=== PATIENT | male | born 1985 | race Caucasian/White ===

== ENCOUNTER 2019-06-30 16:48 | Inpatient (IN) | payer OTHER, MEDICAID ==
[~2019-06-30] VITALS: Ht 167.6 cm; Wt 67.1 kg
--- NOTE | 2019-06-30 16:48 | NUR ---
MD LICONA ASSESSING PT WHILE ON [facility].
[2019-06-30 16:56] VITALS: BP_SYST 126
--- NOTE | 2019-06-30 17:08 | NUR ---
Patient to ER bed 06 to gown for evaluation. Side rails up.
--- NOTE | 2019-06-30 17:12 | NUR ---
PT NOW IN BED 6. CONTINUES TO SLEEP. PT WILL OPEN EYES UPON USING STERNAL RUB . 20G IN LEFT FA. PT IS MOVING AT TIMES, BUT IS MOSTLY SLEEPING. VS ARE ALL WNL.
--- NOTE | 2019-06-30 17:15 | NUR ---
Called Poison Control at [phone] and spoke with Priscilla. Per recommendations: Look for tachycardia, seizure, hyperthermia, hallucinations, prolonged QT, and BEADER/respiratory depression, and liver effects. Recommends UDS, ETOH, Chem, Liver enzymes, tylenol. Repeat the tylenol, aspirin, chem with liver enzymes in 4 hours. No flumazanil to be given, narcan is okay to give as needed. Reviewed EKG, if QT >500 give IV magnesium. If QRS >120, given Bicarb. Given resource to Dr. Schwartz regarding substance abuse line, . Dr. Schwartz notified. Will continue to monitor patient.
--- NOTE | 2019-06-30 17:24 | NUR ---
IV FLUIDS INFUSING NS WIDE OPEN
[2019-06-30 17:36] LABS: BASOPHILS % (AUTO) 0.4 % (0.0-2.0); HEMATOCRIT 45.3 % (36-54); HEMOGLOBIN 15.4 g/dL (14.0-18.0); LYMPHOCYTES # (AUTO) 1.8 K/uL (1.0-5.5); LYMPHOCYTES % (AUTO) 30.7 % (20.5-51.5); MEAN CORPUSCULAR HEMOGLOBIN 35 pg (27-31); MEAN CORPUSCULAR HGB CONC 34 % (32-36); MEAN CORPUSCULAR VOLUME 102 fL (79.0-98.0); MONOCYTES # (AUTO) 0.8 K/uL (0.0-1.0); MONOCYTES % (AUTO) 14.2 % (1.7-9.3); NEUTROPHILS # (AUTO) 3.3 K/uL (1.8-7.7); NEUTROPHILS % (AUTO) 54.7 % (40.0-70.0); PLATELET COUNT (AUTO) 217 K/uL (130-430); RED BLOOD CELL COUNT(AUTO) 4.47 MIL/uL (4.2-6.2); RED CELL DISTRIBUTION WIDTH 13.4 % (9.0-15.0)
[2019-06-30 17:51] LABS: INR 1.1 (0.80-1.20); PROTHROMBIN TIME 11.4 SECS (9.5-12.5)
[2019-06-30 18:04] LABS: ALANINE AMINOTRANSFERASE 62 U/L (12-78); ALBUMIN 3.8 g/dL (3.4-4.8); ALCOHOL, BLOOD 89 mg/dL (<10); ANION GAP 5 (5-15); ASPARTATE AMINOTRANSFERASE 48 U/L (10-37); CALCIUM 8.6 mg/dL (8.4-11.0); CHLORIDE 96 mmol/L (98-107); CREATININE 1.05 mg/dL (0.55-1.30); GLUCOSE 92 mg/dL (70-99); POTASSIUM 3.3 mmol/L (3.5-5.1); SODIUM SERUM 131 mmol/L (136-145); TOTAL BILIRUBIN 0.4 mg/dL (0.0-1.0); UREA NITROGEN, BLOOD 22 mg/dL (8-21)
[2019-06-30 18:05] LABS: ACETAMINOPHEN < 1 ug/mL (1-30); GFR AFRICAN AMERICAN 105 mL/min (>90)
--- NOTE | 2019-06-30 18:15 | NUR ---
PT TAKEN TO CT HEAD.
[2019-06-30 18:33] LABS: CKMB RELATIVE INDEX 0.8 (0.0-2.9); CREATINE KINASE MB 5.2 ng/mL (0-3.6)
--- NOTE | 2019-06-30 18:34 | NUR ---
PT BACK FROM CT.
--- NOTE | 2019-06-30 19:00 | NUR ---
Pt wanded by Security. Dangerous items and contraband, medications removed from room.
--- NOTE | 2019-06-30 19:12 | NUR ---
Spoke with patients brother Walt, . Per Walt, patient was diagnosed with depression prior to service. 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 Patient has no known PTSD from service. Patient lives with his sister and brother in law. Patient has had prior suicide attempts, 3-4 known. Per brother, patients prior attempts have all been taking unknown pills. Patients sister is getting frustrated with patient, and brother Watl has decided to step in and assist. Per brother patient texted his boss stating "I am sorry I wasn't a better employee, I am going to go to sleep and not wake up." Patient is an avid gym goer and "health freak" per brother. Concerned regarding patient status and would like to have the patient observed.
[2019-06-30 19:55] LABS: BARBITURATE, URINE NEGATIVE (NEG <=200); BENZODIAZEPINE, URINE NEGATIVE (NEG <=150); CANNABINOID, URINE NEGATIVE (NEG <=50); COCAINE, URINE NEGATIVE (NEG <=150); METHAMPHETAMINES SCREEN,URINE NEGATIVE (NEG <=500); OPIATE, URINE NEGATIVE (NEG <=100); PHENCYCLIDINE SCREEN,URINE NEGATIVE (NEG <=25); UR TRICYCLIC ANTIDEPRESSANTS NEGATIVE (NEG <=300); URINE AMPHETAMINE NEGATIVE (NEG <=500); URINE METHADONE NEGATIVE (NEG <=200); URINE OXYCODONE SCREEN NEGATIVE (NEG <=100); URINE PROPOXYPHENE SCREEN NEGATIVE (NEG <=300)
[2019-06-30] MEDS ORDERED: NACL 0.9% 1,000 ML IV ONE (21:15)
--- NOTE | 2019-06-30 21:28 | NUR ---
Spoke with Cristopher from [facility] in regards to transferring patient. Cristopher states will call back in order to find out if patient needs to be on a hold. If patient is on hold, per Cristopher, they are unable to take patient for transfer.
[2019-06-30 22:22] LABS: CKMB RELATIVE INDEX 0.9 (0.0-2.9); CREATINE KINASE MB 5.1 ng/mL (0-3.6)
--- NOTE | 2019-06-30 22:53 | NUR ---
Grant from poison control called and wants to repeat the CMP.
--- NOTE | 2019-06-30 23:30 | NUR ---
Patient will be admitted to care of Dr. Fragoso. Admitted to ICU unit. Will be ICU hold as no ICU beds avail at this time. Belongings list completed. Complete and up to date summary report printed. SBAR report to be given at bedside with opportunity for questions.
[2019-06-30 23:38] LABS: CALCIUM 7.9 mg/dL (8.4-11.0); CREATININE 0.85 mg/dL (0.55-1.30); POTASSIUM 3.7 mmol/L (3.5-5.1)
[2019-06-30 23:44] LABS: ALBUMIN 3.4 g/dL (3.4-4.8); TOTAL BILIRUBIN 0.4 mg/dL (0.0-1.0)
--- NOTE | 2019-07-01 00:11 | NUR ---
Pt provided with emesis basin, pt vomited x1
--- NOTE | 2019-07-01 01:16 | NUR ---
Pt resting in ED bed comfortably. No acute distress at this time.
--- NOTE | 2019-07-01 01:25 | NUR ---
Pt disrobed self in bed. Pt urinated onto floor next to bed
--- NOTE | 2019-07-01 02:27 | NUR ---
Pt resting in ED bed. Pt states he took hi ambien, some alchohol and some benadryl today in order to hurt self. pt unspecific on quantities.
--- NOTE | 2019-07-01 03:00 | NUR ---
Pt resting in Ed bed, VSS. No acute distress at this time
--- NOTE | 2019-07-01 04:05 | NUR ---
Pt resting in ed bed comfortably. Pt states he is unable to use urinal at this time, does not feel urge to pee
--- NOTE | 2019-07-01 06:13 | NUR ---
Spoke with Dr. rFagoso. Dr. Lira requested/approved downgrade of patient admission criteria based on current status. Pt is now downgraded to telemetry.
--- NOTE | 2019-07-01 06:19 | NUR ---
Called [facility] for Telemetry bed
--- NOTE | 2019-07-01 07:45 | NUR ---
[facility] to [facility] via [facility]. Licensed nurse present. IV present no signs or symptoms of infiltration.
[2019-07-01 08:00] VITALS: BP_SYST 131
--- NOTE | 2019-07-01 08:10 | NUR ---
CONSULTATION PAGED REASON FOR CONSULTATION:ALOC, RHABDOMYOLITIS WAS CONSULT CALLED?Y PERSON WHO WAS NOTIFIED:GISSEL CONSULTING PHYSICIAN:NAYLA HERNANDEZ PARACHUTE INSPECTOR SPECIALTY:PULMONARY PARACHUTE INSPECTOR PHONE NUMBER:[phone] REQUESTING PHYSICIAN:AAYUSH JAMES
--- NOTE | 2019-07-01 08:38 | NUR ---
CONSULTATION PAGED REASON FOR CONSULTATION:SUICIDAL ATTEMPT/DEPRESSION WAS CONSULT CALLED?Y PERSON WHO WAS NOTIFIED:GISSEL CONSULTING PHYSICIAN:CHINTAN ORO INDEPENDENT SALES REPRESENTATIVE SPECIALTY:PSYCH INDEPENDENT SALES REPRESENTATIVE PHONE NUMBER:[phone] REQUESTING PHYSICIAN:AAYUSH JAMES
[2019-07-01] MEDS ORDERED: ACET-73 PO (08:51)
[2019-07-01] MEDS ORDERED: BUPR-84 PO (08:51)
[2019-07-01] MEDS ORDERED: METH20TA PO (08:51)
[2019-07-01] MEDS ORDERED: HYDR-4272 PO (08:51)
[2019-07-01] MEDS ORDERED: MIRT15TA7 PO (08:51)
[2019-07-01] MEDS ORDERED: RANI-362 PO (08:51)
[2019-07-01] MEDS ORDERED: HYOS0.1275 PO (08:51)
[2019-07-01] MEDS ORDERED: SERT50TA PO (08:51)
[2019-07-01] MEDS ORDERED: [UNRECOGNIZED DRUG - CODE] PO (08:51)
[2019-07-01] MEDS ORDERED: ZOLP10TA2 PO (08:51)
--- NOTE | 2019-07-01 09:00 | NUR ---
PATIENT IS ASSESSED. PATIENT STATES THAT HE HAS NO INTENTIONS OF INFLICTING INJURIES ON HIMSELF AT THIS TIME.
[2019-07-01] MEDS: D5/0.45 NS 1,000 ML IV SCH ×2 (09:56→17:12)
--- NOTE | 2019-07-01 10:20 | NUR ---
PATIENT IS RESTING AT THIS TIME. TOLERATING WITHOUT DISTRESS. TRANSFERRED TO [facility] FOR CLOSE OBSERVATION.
[2019-07-01] MEDS ORDERED: HYDROcodone/ACETAMIN 10-325 MG TAB PO PRN (11:00)
[2019-07-01] MEDS ORDERED: HYDROcodone/ACETAMIN 5-325 MG TAB (NORCO/ VICODIN) PO PRN (11:00)
[2019-07-01] MEDS ORDERED: ZOLPIDEM TARTRATE 5 MG TABLET PO PRN (11:00)
[2019-07-01] MEDS ORDERED: LORazepam 2 MG/ML VIAL IVP PRN (11:00)
[2019-07-01] MEDS ORDERED: ONDANSETRON HCL 4 MG/2 ML VIAL IVP PRN (11:00)
[2019-07-01] MEDS ORDERED: [UNRECOGNIZED DRUG - OTHER] PO SCH (11:00)
[2019-07-01] MEDS ORDERED: CAFFEINE PO SCH (11:00)
[2019-07-01] MEDS ORDERED: ACETAMINOPHEN PO SCH (11:00)
[2019-07-01] MEDS ORDERED: FAMOTIDINE 20 MG TABLET PO ONE (11:30)
[2019-07-01] MEDS ORDERED: SERTRALINE HCL 50 MG TABLET PO ONE (11:30)
[2019-07-01] MEDS ORDERED: buPROPion HCL 150 MG XL TAB PO ONE (11:30)
[2019-07-01] MEDS ORDERED: METHYLPHENIDATE HCL 10 MG TABLET PO SCH (12:00)
--- NOTE | 2019-07-01 12:25 | NUR ---
PATIENT EATING DINNER AT THIS TIME. TOLERATING WITHOUT DISTRESS.
--- NOTE | 2019-07-01 14:38 | NUR ---
patient is seen conversing with sitter.
[2019-07-01] MEDS ORDERED: ACETAMINOPHEN 500 MG TABLET PO SCH (15:00)
[2019-07-01 16:00] VITALS: BP_SYST 135
--- NOTE | 2019-07-01 16:40 | NUR ---
patient is resting, tolerated without distress.
--- NOTE | 2019-07-01 18:40 | NUR ---
Patient is eating dinner, tolerating without distress.
--- NOTE | 2019-07-01 19:10 | NUR ---
OPENING NOTES Receive report from morning shift nurse. Patient AOx4. No signs of respiratory distress and discomfort noted. Sitter at bedside. Vital signs take and recorded. Patient verbalized feeling sad, RN listened and allowed patient to verbalized feelings. Safety precautions in place. Will continue to monitor patient.
[2019-07-01 20:00] VITALS: BP_SYST 116
[2019-07-01] MEDS: MIRTAZAPINE 15 MG TABLET PO SCH (20:39)
--- NOTE | 2019-07-01 20:39 | NUR ---
MED PASS Due medication given at this time. No signs of respiratory distress and discomfort noted. No thoughts of hurting himself at this time. Sitter stays at the bed side. Needs attended. Safety precautions in place. Will continue to monitor patient.
--- NOTE | 2019-07-01 23:11 | NUR ---
Notes Patient verbalized feeling anxiety and discomfort. PRN medication given at this time. No signs of respiratory distress noted. Safety precautions in place. Sitter at bedside. Bed alarm on. Will continue to monitor patient.
[2019-07-02] VITALS: BP_SYST 125
[2019-07-02] MEDS: D5/0.45 NS 1,000 ML IV SCH ×2 (02:25→10:27)
--- NOTE | 2019-07-02 02:35 | NUR ---
RN ROUNDS Patient asleep at this time. No signs of respiratory distress and discomfort noted. Breathing even and unlabored. Sitter at bedside. Safety precautions in place. Call light within reach. Will continue to monitor patient
--- NOTE | 2019-07-02 04:30 | NUR ---
RN ROUNDS Patient asleep at this time. No signs of respiratory distress and discomfort noted. Breathing even and unlabored. IVF infusing well. Sitter at bedside. Safety precautions in place. Call light within reach. Will continue to monitor patient
[2019-07-02 07:43] LABS: BASOPHILS % (AUTO) 0.6 % (0.0-2.0); HEMATOCRIT 44.1 % (36-54); HEMOGLOBIN 14.9 g/dL (14.0-18.0); LYMPHOCYTES # (AUTO) 2.1 K/uL (1.0-5.5); LYMPHOCYTES % (AUTO) 26.1 % (20.5-51.5); MEAN CORPUSCULAR HEMOGLOBIN 35 pg (27-31); MEAN CORPUSCULAR HGB CONC 34 % (32-36); MEAN CORPUSCULAR VOLUME 102 fL (79.0-98.0); MONOCYTES % (AUTO) 12.2 % (1.7-9.3); NEUTROPHILS # (AUTO) 4.8 K/uL (1.8-7.7); NEUTROPHILS % (AUTO) 61.1 % (40.0-70.0); PLATELET COUNT (AUTO) 199 K/uL (130-430); RED BLOOD CELL COUNT(AUTO) 4.32 MIL/uL (4.2-6.2); WHITE BLOOD COUNT (AUTO) 7.9 K/uL (4.8-10.8)
[2019-07-02 08:00] LABS: ALBUMIN 3.2 g/dL (3.4-4.8); CALCIUM 8.1 mg/dL (8.4-11.0); CREATININE 1.04 mg/dL (0.55-1.30); POTASSIUM 3.6 mmol/L (3.5-5.1); TOTAL BILIRUBIN 0.5 mg/dL (0.0-1.0)
--- NOTE | 2019-07-02 08:00 | NUR ---
Psychosocial Patient is low mood ,depressed , but cooperative ,verbalized poor support from family , thoughts of dying still there, but not sure what to do , encouraged verbalization of feeling , support, on 1:1 direct observation for suicidal thought, needs attended.
[2019-07-02 08:20] VITALS: BP_SYST 135
[2019-07-02] MEDS: FAMOTIDINE 20 MG TABLET PO SCH (08:22)
[2019-07-02] MEDS: SERTRALINE HCL 50 MG TABLET PO SCH (08:22)
[2019-07-02] MEDS: buPROPion HCL 150 MG XL TAB PO SCH (08:22)
[2019-07-02] MEDS: ACETAMINOPHEN 325 MG TABLET PO PRN (08:48)
--- NOTE | 2019-07-02 09:29 | NUR ---
Recalled psych consult: Spoke with Varinder and faxed face sheet to office.
--- NOTE | 2019-07-02 10:30 | NUR ---
MD Rounds Seen and examined by the psychiatrist Michael Dennis ,kept on 51:50, direct observations 1:1.
[2019-07-02 12:00] VITALS: BP_SYST 119
--- NOTE | 2019-07-02 15:07 | NUR ---
Vp Strategy: Met with pt. suicial OD, placed on 5150, has had numerous Suicidal attempts in past. AB INITIO ETL DEVELOPER met with pt. conducted a DCPA and SW interview. Pt. has a friend who was visiting, Max, at the time. Pt. chose to have her stay during interview. Pt. stated he has [employer] Ins. and not [employer]i-alexandra as stated on the facesheet. Pt. stated he has had numerous suicidal attempts. He has been in [facility] 4-5 times prior to this day, the first one was when he was 18 years old. Prior to this hospitalization, he was found having OD on Ambien, remeron, tylenol and vodka. He stated he has tried numerous anti-depressants. He has taken Paxil, Prpzac Lexapro, Lith., Wellbutrin, and a couple of others. He is currently taking Zoloft. Pt. feels none are working. Re. his numerous suicide attempts. Pt. has 3 attempts prior to entering the [employer]. While in the , he had 2 suicide attempts (he stated this was because he did not agree with his assignement ex. 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 He was given honorable d/c because he decided to be upfront with the pscy. and divulge his entire hx. After the , he attempted suicide because his step sister had . He took the news pretty hard and felt suicidal. He stated he went to the suicide bridge in [place], but was unable to jump because there was a chance he could survive and did not want to be a survivor in the hospital with tubes and hooked up to machines. He recounts a total of 6 attempts and this current attempt makes it a total of 7 suicide attempts. AB INITIO ETL DEVELOPER shared with him some resources such as some mental health resources for therapy, some hotline and suicide prevention contacts as well as some clinics as a PCP was not listed. AB INITIO ETL DEVELOPER also gave pt. a Suicide Prevention Lifeline resource. Pt. stated he sees Dr. Barrera who referred him to a psychiatrist. Pt. began seeing Dr. Watts for the past 2 years, but stopped seeing him. Pt. felt like was not listening to him. At the moment, pt. does not have a therapist. He is open to going back. AB INITIO ETL DEVELOPER asked him to speak to his attending (Soraya) to discuss his POC. AB INITIO ETL DEVELOPER educated pt. on finding out his triggers, making contracts with friend and family, the importance of returning to therapy. Utilizing resources to help when he is feeling suicidal. AB INITIO ETL DEVELOPER asked pt. if he was good with taking his medication for depression Pt. stated he is even if he is feeling better, he takes meds. Pt. ageed to speak to Dr. Lira when he comes in. Pt. stated he felt Dr. Tuttle?, the Pscy. who came in to assess him for a 5150 misconstrued his words. Pt. stated he had a caodaism epiphany. His aunt had told him when he has that negative self talk that its the devil who is negatively self talking pt. Pt. stated Psy. stated, " So your hearing voices" Pt denied this, but was not believed. AB INITIO ETL DEVELOPER shared with pt. she would document his concern. AB INITIO ETL DEVELOPER will remain available as needed.
[2019-07-02 16:00] VITALS: BP_SYST 150
--- NOTE | 2019-07-02 16:30 | NUR ---
Patient updated regarding plan of care for discharge to psyche facility when medically stable, calm and cooperative , on DO 1:1
--- NOTE | 2019-07-02 19:10 | NUR ---
OPENING NOTES Receive report from morning shift nurse STEVE Swenson. No signs of respiratory distress and discomfort noted. Sitter at bedside. Friend at the bedside. Vital signs taken and recorded. No ideation of hurting himself. Re educated on safety while in the hospital, and purpose of having a sitter at bedside, patient verbalized understanding. Safety precautions in place. Will continue to monitor patient
[2019-07-02 20:00] VITALS: BP_SYST 128
--- NOTE | 2019-07-02 21:24 | NUR ---
CONSULTATION PAGED/CALLED Reason for Consultation: OVER ACTIVE BLADDDER Person Who was Notified: EXCHANGE Consulting Physician: NITIN LICONA Packing Machine Tender Specialty: UROLOGY Ordering Physician: CAN
--- NOTE | 2019-07-02 21:30 | NUR ---
SPOKE WITH DR. JOVI PACE made aware of patients complaints overactive bladder. MD ordered for urologist consult.
[2019-07-02] MEDS: MIRTAZAPINE 15 MG TABLET PO SCH (22:34)
[2019-07-02] MEDS: NORMAL SALINE 5 ML DISP.SYRIN IVF SCH (22:34)
--- NOTE | 2019-07-02 22:34 | NUR ---
MED PASS Due medication given at this time. No signs of respiratory distress and discomfort noted. Patient is cooperative and calm. Sitter at the bedside. Safety precautions in place. Will continue to monitor patient
[2019-07-03] VITALS: BP_SYST 125
[2019-07-03 06:15] LABS: CREATININE 1.21 mg/dL (0.55-1.30); POTASSIUM 4.3 mmol/L (3.5-5.1)
[2019-07-03] MEDS: NORMAL SALINE 5 ML DISP.SYRIN IVF SCH ×2 (06:15→14:39)
[2019-07-03 06:33] LABS: BASOPHILS % (AUTO) 0.4 % (0.0-2.0); HEMATOCRIT 46.7 % (36-54); HEMOGLOBIN 15.6 g/dL (14.0-18.0); LYMPHOCYTES # (AUTO) 2.1 K/uL (1.0-5.5); LYMPHOCYTES % (AUTO) 18.3 % (20.5-51.5); MEAN CORPUSCULAR HEMOGLOBIN 34 pg (27-31); MEAN CORPUSCULAR HGB CONC 34 % (32-36); MEAN CORPUSCULAR VOLUME 102 fL (79.0-98.0); MONOCYTES # (AUTO) 1.7 K/uL (0.0-1.0); MONOCYTES % (AUTO) 14.6 % (1.7-9.3); NEUTROPHILS # (AUTO) 7.8 K/uL (1.8-7.7); NEUTROPHILS % (AUTO) 66.7 % (40.0-70.0); PLATELET COUNT (AUTO) 224 K/uL (130-430); RED BLOOD CELL COUNT(AUTO) 4.58 MIL/uL (4.2-6.2); RED CELL DISTRIBUTION WIDTH 13.5 % (9.0-15.0); WHITE BLOOD COUNT (AUTO) 11.7 K/uL (4.8-10.8)
--- NOTE | 2019-07-03 07:10 | NUR ---
CLOSING NOTES/ IV insertion Patient awake at this time, patient verbalized pain on his IV site, redness is noted. IV catheter removed, catheter intact. First attempt, re insertion of IV in the Right hand, patient tolerated well. Patient verbalized feeling a lot better, no thoughts of hurting himself at this time, allowed patient to verbalized feelings. Call light within reach. Sitter at bedside. Safety precautions in place. Endorse to STEVE Mckeon for continuity of care.
--- NOTE | 2019-07-03 07:15 | NUR ---
OPENING NOTES RECEIVED REPORT, PT STABLE. PT AWAKE, ALERT, AND ORIENTED. NO ACUTE DISTRESS NOTED. PT DENIES PAIN AT THIS TIME. ALL NEEDS MET. CALL LIGHT IN REACH. FALL AND ASPIRATION PRECAUTIONS IN PLACE. BED LOCKED AND IN LOWEST POSITION. SITTER PRESENT. CONTINUE TO MONITOR.
[2019-07-03 07:52] VITALS: BP_SYST 121
[2019-07-03] MEDS: buPROPion HCL 150 MG XL TAB PO SCH (08:01)
[2019-07-03] MEDS: SERTRALINE HCL 50 MG TABLET PO SCH (08:02)
[2019-07-03] MEDS: FAMOTIDINE 20 MG TABLET PO SCH (08:02)
[2019-07-03] MEDS: ACETAMINOPHEN 325 MG TABLET PO PRN ×2 (08:08→20:56)
--- NOTE | 2019-07-03 08:08 | NUR ---
ROUTINE MEDS/PRN MEDS ROUTINE/ PRN MEDS ADMINISTERED ORDERED PER MD, EDUCATION GIVEN, TOLERATED WELL. NO ACUTE DISTRESS NOTED. ALL NEEDS MET. CALL LIGHT IN REACH. CONTINUE TO MONITOR. SITTER PRESENT.
--- NOTE | 2019-07-03 09:00 | NUR ---
RECEIVED CALL FROM LAUNDRY WORKER, FREDDIE, STATED THAT PT WAS CLEARED FOR PLACEMENT FROM [place]. PT WAS AWAITING UROLOGIST CONSULT, DR. LICONA LAST NIGHT DUE TO OVERACTIVE BLADDER. CALLED AAYUSH MENDEZ TO CLARIFY ORDERS OF DISCHARGE IN REGARDS TO WAITING FOR THE UROLOGIST TO SEE PT. AWAITING CALL BACK.
--- NOTE | 2019-07-03 09:53 | NUR ---
SEEN BY DR. JUNIOR AT BEDSIDE. REQUESTED CONSULT ID, DR. CARPENTER. WILL CONTACT.
--- NOTE | 2019-07-03 10:01 | NUR ---
SS NOTES/PSYCH TRANSFER: Pt accepted at [facility], under Dr. Epps. Nurse to nurse report @ [phone]. Information given to Linda WILSON. Octavio Mckeon, awaiting on a consult with Dr. Lira for overactive bladder. [facility] on will call. Addendum: 07/03/19 at 1004 by Sky LANDIS Viviane QUEEN of HCP informed of Inpt psych transfer. Authorization received from BRET Pan of HCP : [facility] auth# [id number], region 1. Addendum: 07/03/19 at 1607 by Sky LANDIS Update: Urine result came back positive. Linda is awaiting on Dr. Villatoro's call to prescribe PO or IV abx meds prior to discharge. Octavio Mckeon, [facility] is aware on hold up.
--- NOTE | 2019-07-03 10:07 | NUR ---
CONSULT ID DYSURIA DR MENDEZ [phone] S/E [facility] OFFICE
--- NOTE | 2019-07-03 10:37 | NUR ---
CALLED TERMINAL CARMANFREDDIE AND MAKENNA ARTHUR CALLED MAKENNA ARTHUR FOR UPDATE ON TRANSFER, UPDATED RECEIVING NURSE ON CARE PLAN REGARDING CONSULT ID, DR. CARPENTER TO SEE PATIENT. WILL FOLLOW-UP WHEN DR. CARPENTER SEES PATIENT.
[2019-07-03] MEDS ORDERED: cefTRIAXone 1 GM in D5W 50 ML IV SCH (12:00)
[2019-07-03 12:04] VITALS: BP_SYST 118
--- NOTE | 2019-07-03 12:13 | NUR ---
ROUTINE MEDS ROUTINE MEDS ADMINISTERED ORDERED PER MD, EDUCATION GIVEN, TOLERATED WELL. NO ACUTE DISTRESS NOTED. ALL NEEDS MET. CALL LIGHT IN REACH. CONTINUE TO MONITOR.
--- NOTE | 2019-07-03 13:00 | NUR ---
CALLED DR. CARPENTER TO UPDATE ON URINE LAB RESULTS. AWAITING CALL BACK.
[2019-07-03 13:48] LABS: BILIRUBIN,URINE NEGATIVE (NEGATIVE); BLOOD, URINE 2+ (NEGATIVE); CLARITY/URINE CLEAR (CLEAR); COLOR,URINE YELLOW (YELLOW); GLUCOSE,URINE NEGATIVE (NEGATIVE); KETONES,URINE NEGATIVE (NEGATIVE); LEUKOCYTE ESTERASE ,URINE 2+ (NEGATIVE); NITRITE, URINE NEGATIVE (NEGATIVE); PROTEIN URINE NEGATIVE (NEGATIVE); UROBILINOGEN,URINE 0.2 (0.2-1.0)
[2019-07-03 13:56] LABS: BACTERIA,URINE MODERATE /HPF (None Seen); WBC,URINE 50-80 /HPF (0-3)
--- NOTE | 2019-07-03 14:00 | NUR ---
CALLED DR. CARPENTER 2X REGARDING URINE LAB RESULTS. AWAITING CALL BACK.
--- NOTE | 2019-07-03 14:15 | NUR ---
ROUNDS PT ASKED FOR SNACKS. ADMINISTERED PUDDING TO PT, TOLERATED WELL. HOB ELEVATED. NO ACUTE DISTRESS NOTED. ALL NEEDS MET. CALL LIGHT IN REACH. SITTER PRESENT. CONTINUE TO MONITOR.
--- NOTE | 2019-07-03 16:00 | NUR ---
ROUNDS PT AWAKE, ALERT, AND ORIENTED. NO ACUTE DISTRESS NOTED. ALL NEEDS MET. CALL LIGHT IN REACH. SITTER PRESENT. UPDATED PT ON CARE PLAN. CONTINUE TO MONITOR.
[2019-07-03 17:56] VITALS: BP_SYST 119
[2019-07-03 17:57] VITALS: BP_SYST 119
--- NOTE | 2019-07-03 18:06 | NUR ---
SPOKE TO DR. CARPENTER REGARDING URINALYSIS. ORDERS VERIFIED AND CARRIED OUT.
--- NOTE | 2019-07-03 18:29 | NUR ---
GAVE REPORT TO BOB RIDER FROM [facility] FOR TRANSFER. DR. NOE IS THE RECEIVING DOCTOR. CALLED [facility] TO ARRANGE FOR PICK-UP AT 2130. WILL ENDORSE TO [facility] NURSE.
--- NOTE | 2019-07-03 18:45 | NUR ---
CLOSING NOTES PT AWAKE, ALERT, AND ORIENTED, VERBALIZING THAT HE "FEELS MUCH BETTER." NO ACUTE DISTRESS NOTED. ALL NEEDS MET. CALL LIGHT IN REACH. FALL AND ASPIRATION PRECAUTIONS IN PLACE. IV LINE INTACT AND PATENT, NO SIGNS OF INFILTRATION NOTED. ENDORSED TO STEVE WASHBURN TO DISCONTINUE IV BEFORE DISCHARGE AND TAKE OUT ID BAND. SITTER IN PLACE. BED LOCKED AND IN LOWEST POSITION. ENDORSED TO STEVE WASHBURN THE TIME OF PICK-UP.
[2019-07-03 20:00] VITALS: BP_SYST 121
[2019-07-03] MEDS: MIRTAZAPINE 15 MG TABLET PO SCH (20:54)
[2019-07-03] MEDS ORDERED: DOXYCYCLINE HYCLATE 100 MG CAPSULE PO SCH (21:00)
== END 2019-07-03 22:14 | DRG 872 ==
LOC: SED 16:48 → STU 07-01 07:45
PROVIDERS: ADMIT Preventive Medicine Preventive Medicine/Occupational Environmental Medicine; ATTEND Preventive Medicine Preventive Medicine/Occupational Environmental Medicine
DX: A41.9 Sepsis, unspecified organism (principal); M62.82 Rhabdomyolysis; E87.2 Acidosis; E87.1 Hypo-osmolality and hyponatremia; E44.0 Moderate protein-calorie malnutrition; F33.2 Major depressive disorder, recurrent severe without psychotic features; R45.851 Suicidal ideations; E83.51 Hypocalcemia; T42.6X2A Poisoning by other antiepileptic and sedative-hypnotic drugs, intentional self-harm, initial encounter; E88.09 Other disorders of plasma-protein metabolism, not elsewhere classified; E87.6 Hypokalemia; Z91.5 Personal history of self-harm; Y92.89 Other specified places as the place of occurrence of the external cause; Z68.23 Body mass index [BMI] 23.0-23.9, adult
CPT/HCPCS: 36415; 70450-TC; 71045; 80048; 80053; 80307; 81000-TC; 82140-TC; 82550-TC; 82553-TC; 83605; 83735-TC; 83880; 84100-TC; 84484; 85025; 85610-TC; 85730-TC; 87086; 93005; 96360; 99285; G0378; G0480; G0481; G0482; J0696; J2060; J7060